=== PATIENT | male | born 1935 | race Caucasian/White ===

== ENCOUNTER 2018-08-11 16:19 | Emergency (ER) | payer MEDICARE, OTHER ==
--- NOTE | 2018-08-11 17:08 | ED Physician Documentation ---
History of Present Illness - Stated complaint Stated Complaint: CHEMO/FEVER/CHILLS - Chief complaint Chief Complaint: Fever - History obtained from History obtained from: Patient - History of Present Illness Timing: Yesterday (Fever since yesterday with tmax 100.8. No cough, URI or urinary complaints. On datrafenib and trametinib for metastatic melanoma.) - Additonal information Additional information: He does not have a port or any indwelling hardware Review of Systems Ten Systems: 10 systems reviewed and negative Constitutional: reports: Fever, Chills Nose: denies: Rhinorrhea / runny nose, Congestion Throat: denies: Sore throat Cardiac: denies: Chest pain / pressure, Palpitations Respiratory: denies: Dyspnea, Cough PD PAST MEDICAL HISTORY - Present Medications Home Medications: Ambulatory Orders Medication Instructions Recorded Confirmed Acyclovir 500 mg pe 08/11/18 Aspirin 81 mg PO 08/11/18 Cod Liver Oil 1 each PO 08/11/18 Dabrafenib Mesylate [Tafinlar] 50 mg PO 08/11/18 Levofloxacin [Levaquin] 750 mg PO DAILY #7 tablet 08/11/18 Levothyroxine [Synthroid] 125 mcg PO QDAC 08/11/18 08/11/18 Trametinib Dimethyl Sulfoxide 2 mg PO 08/11/18 [Mekinist] - Allergies Allergies/Adverse Reactions: Allergies Allergy/AdvReac Type Severity Reaction Status Date / Time No Known Drug Allergies Allergy Verified 08/11/18 16:28 PD ED PE NORMAL - Vitals Vital signs reviewed: Yes - General General: Alert and oriented X 3, No acute distress - HEENT HEENT: PERRL, EOMI, Pharynx benign - Neck Neck: Supple, no meningeal sign, No bony TTP, No bruit - Cardiac Cardiac: RRR, No murmur - Respiratory Respiratory: No respiratory distress, Clear bilaterally - Abdomen Abdomen: Normal bowel sounds, Soft, Non tender - Back Back: No CVA TTP, No spinal TTP - Derm Derm: Normal color, Warm and dry - Neuro Neuro: Alert and oriented X 3, icu tech 2-12 intact - Psych Psych: Normal mood, Normal affect Results - Vitals Vitals: Vital Signs - 24 hr 08/11/18 16:23 Temperature 37.9 C H Heart Rate 97 Respiratory 20 Rate Blood Pressure 177/84 H O2 Saturation 100 - Labs Labs: Laboratory Tests 08/11/18 08/11/18 08/11/18 17:15 17:15 17:15 WBC 5.2 RBC 4.56 L Hgb 14.5 Hct 42.7 MCV 93.5 MCH 31.8 H MCHC 34.0 RDW 13.1 Plt Count 160 MPV 8.1 Neut # (Auto) 3.6 Lymph # (Auto) 1.2 L Hettinger # (Auto) 0.4 Eos # (Auto) 0.0 Baso # (Auto) 0.0 Absolute Nucleated RBC 0.01 Nucleated RBC % 0.2 Sodium 131 L Potassium 4.2 Chloride 98 L Carbon Dioxide 24 Anion Gap 9.0 BUN 20 Creatinine 1.0 Estimated GFR (MDRD) 71 L Glucose 110 H Lactic Acid 1.0 Calcium 9.6 Total Bilirubin 0.9 AST 40 ALT 29 Alkaline Phosphatase 87 Total Protein 7.3 Albumin 4.7 Globulin 2.6 Albumin/Globulin Ratio 1.8 Lipase 53 H Urine Color Urine Clarity Urine pH Ur Specific Jordan Urine Protein Urine Glucose (UA) Urine Ketones Urine Occult Blood Urine Nitrite Urine Bilirubin Urine Urobilinogen Ur Leukocyte Esterase Ur Microscopic Review Urine Culture Comments Influenza A (Rapid) Influenza B (Rapid) 08/11/18 08/11/18 17:45 17:50 WBC RBC Hgb Hct MCV MCH MCHC RDW Plt Count MPV Neut # (Auto) Lymph # (Auto) Hettinger # (Auto) Eos # (Auto) Baso # (Auto) Absolute Nucleated RBC Nucleated RBC % Sodium Potassium Chloride Carbon Dioxide Anion Gap BUN Creatinine Estimated GFR (MDRD) Glucose Lactic Acid Calcium Total Bilirubin AST ALT Alkaline Phosphatase Total Protein Albumin Globulin Albumin/Globulin Ratio Lipase Urine Color YELLOW Urine Clarity CLEAR Urine pH 5.5 Ur Specific Jordan 1.025 Urine Protein NEGATIVE Urine Glucose (UA) NEGATIVE Urine Ketones NEGATIVE Urine Occult Blood NEGATIVE Urine Nitrite NEGATIVE Urine Bilirubin NEGATIVE Urine Urobilinogen 0.2 (NORMAL) Ur Leukocyte Esterase NEGATIVE Ur Microscopic Review NOT INDICATED Urine Culture Comments NOT INDICATED Influenza A (Rapid) Negative Influenza B (Rapid) Negative - Rads (name of study) 2v chest Radiology: EMP read contemporaneously (Early/mild RLL PNA) PD MEDICAL DECISION MAKING - ED course ED course: 83-year-old gentleman on chemotherapy presents with fever. He is found not to be neutropenic and has advised very mild pneumonia on x-ray despite the lack of pulmonary symptoms. Departure - Departure Disposition: 01 Home, Self Care Clinical Impression: Fever Qualifiers: Fever type: due to other condition Qualified Code(s): R50.81 - Fever presenting with conditions classified elsewhere Melanoma Qualifiers: Melanoma location: unspecified site Qualified Code(s): C43.9 - Malignant melanoma of skin, unspecified Pneumonia Qualifiers: Pneumonia type: due to unspecified organism Laterality: right Lung location: lower lobe of lung Qualified Code(s): J18.1 - Lobar pneumonia, unspecified organism Condition: Good Record reviewed to determine appropriate education?: Yes Instructions: Pneumonia Dc Prescriptions: Levofloxacin [Levaquin] 750 mg PO DAILY #7 tablet Comments: Call your doctor to arrange a follow-up appointment, make the next available appointment. In the interim, return anytime if worse or if new symptoms develop. Your blood pressure was elevated today on check into the emergency department. This does not mean that you have hypertension, it is a common phenomenon to come to the emergency department and have elevated blood pressure. I recommend that you see your primary care physician within the week to have it rechecked when you are feeling better.
[2018-08-11 17:26] LABS: BASOPHILS % (AUTO) 0.3 %; HGB - HEMOGLOBIN 14.5 g/dL (14.0-18.0); LYMPHOCYTES # (AUTO) 1.2 10^3/uL (1.5-3.5); LYMPHOCYTES % (AUTO) 23.5 %; MEAN CORPUSCULAR HEMOGLOBIN 31.8 pg (27.0-31.0); MEAN CORPUSCULAR VOLUME 93.5 fL (80.0-94.0); MEAN PLATELET VOLUME 8.1 fL (7.4-11.4); MONOCYTES # (AUTO) 0.4 10^3/uL (0.0-1.0); MONOCYTES % (AUTO) 7.3 %; NEUTROPHILS # (AUTO) 3.6 10^3/uL (1.5-6.6); NEUTROPHILS % (AUTO) 68.9 %; PLT - PLATELET COUNT 160 10^3/uL (130-450); RED BLOOD COUNT 4.56 10^6/uL (4.70-6.10); RED CELL DISTRIBUTION WIDTH 13.1 % (12.0-15.0); WHITE BLOOD COUNT 5.2 x10^3/uL (4.8-10.8)
[2018-08-11 17:37] LABS: ALBUMIN 4.7 g/dL (3.2-5.5); ALBUMIN/GLOBULIN RATIO 1.8 (1.0-2.2); BILIRUBIN,TOTAL 0.9 mg/dL (0.2-1.0); CALCIUM 9.6 mg/dL (8.5-10.3); TOTAL PROTEIN 7.3 g/dL (6.7-8.2)
[2018-08-11 17:56] LABS: BILIRUBIN,URINE NEGATIVE (NEGATIVE); GLUCOSE, URINE (UA) NEGATIVE (NEGATIVE); KETONES,URINE (UA) NEGATIVE (NEGATIVE); LEUKOCYTE ESTERASE, URINE NEGATIVE (NEGATIVE); NITRITE,URINE NEGATIVE (NEGATIVE); OCCULT BLOOD,URINE NEGATIVE (NEGATIVE); PH,URINE 5.5 PH (5.0-7.5); PROTEIN,URINE NEGATIVE (NEGATIVE); UROBILINOGEN,URINE 0.2 (NORMAL) E.U./dL (NORMAL)
[2018-08-11 18:00] LABS: CLARITY,URINE CLEAR (CLEAR)
--- NOTE | 2018-08-11 18:10 | XRAY Report ---
Reason: fever Procedure Date: 08/11/2018 Accession Number: [id number] / [id number] Procedure: XR - Chest 2 View X-Ray CPT Code: 47397 FULL RESULT: EXAM: CHEST RADIOGRAPHY EXAM DATE: 08/11/2018 05:39 PM. CLINICAL HISTORY: Fever. COMPARISON: None. TECHNIQUE: 2 views. FINDINGS: Lungs/Pleura: Ill-defined patchy and linear opacities in the right mid to lower lung. No pleural effusion or pneumothorax. Mediastinum: Heart and mediastinal contours are unremarkable. Other: Mild to moderate degenerative disk changes in the spine with convex right curvature. IMPRESSION: Ill-defined patchy and linear opacities in the right mid to lower lung, concerning for early infection or inflammation. RADIA
[2018-08-11] MEDS ORDERED: levoFLOXacin 250 MG TABLET PO STA (18:11)
[2018-08-11 18:48] VITALS: BP 140/76
== END 2018-08-11 18:50 | disposition home or self-care (01) ==
LOC: ED 16:19
DX: J18.1 Lobar pneumonia, unspecified organism (principal); R50.81 Fever presenting with conditions classified elsewhere; C43.9 Malignant melanoma of skin, unspecified; Z79.82 Long term (current) use of aspirin; R03.0 Elevated blood-pressure reading, without diagnosis of hypertension
CPT/HCPCS: 36415; 71046; 80053; 81003; 83605; 83690; 85025; 87040; 87275; 87276; 99283; A9270; 81001; 87086

== ENCOUNTER 2019-02-06 10:47 | Inpatient (IN) | payer MEDICARE, OTHER ==
--- NOTE | 2019-02-06 11:00 | ED Physician Documentation ---
PD HPI SYNCOPE - Stated complaint Stated Complaint: SYNCOPE/GLF FACIAL INJURY - Chief complaint Chief Complaint: Neuro - History obtained from History obtained from: Patient, EMS - History of Present Illness Witnessed: Unwitnessed Timing - onset: Today Duration: Seconds Preceding symptoms: Light headed (Abrupt lightheadedness just for couple of seconds prior to the fainting. He had had a couple of other episodes in the last 2 days associated with mild physical activity of walking up a little bit of a hill and then yesterday while washing his deck. While washing the deck he did not feel exerted per se and was doing some bending over and felt lightheaded. However the day before was just with walking up a slight incline. Today's episode was while walking the dog any said he picked up the pace to walk a little brisker and then abruptly felt lightheaded and fainted. He denied chest pain with any of those.) Associated symptoms: No: Seizure, Incontinant of urine, Headache, Chest pain, Abdominal pain Contributing factors: Exertion. No: Recent med change, Decreased PO intake, Noxious stimulae Injury occurred: Fell, Head injury (injury to face: nose, nasal bridge and forehead.) Similar symptoms before: Has not had sx before (He has not had problems with abnormal heart rhythm nor heart disease nor fainting episodes prior to the past few days. He does not have any prior history of atrial fibrillation or flutter .) Recently seen: Clinic (He sees an oncologist regarding melanoma that is in remission. He does receive some ongoing chemotherapy.) Review of Systems Constitutional: denies: Fever, Chills, Myalgias, Fatigue, Weight Loss Eyes: denies: Loss of vision Nose: denies: Rhinorrhea / runny nose, Congestion Throat: denies: Sore throat Cardiac: denies: Chest pain / pressure, Palpitations, Pedal edema, Calf pain Respiratory: denies: Dyspnea, Cough, Wheezing GI: denies: Abdominal Pain, Nausea, Vomiting, Diarrhea, Bloody / black stool : denies: Dysuria Musculoskeletal: denies: Neck pain, Back pain Neurologic: denies: Focal weakness, Numbness, Altered mental status, Headache Psychiatric: denies: Depressed Endocrine: denies: Weight loss, Easy bruising / bleeding Immunocompromised: reports: Chemotherapy PD PAST MEDICAL HISTORY - Past Medical History Cardiovascular: Hypertension Endocrine/Autoimmune: HyPOthyroidism Other Past Medical History: Melanoma, in remission, on chemo - Past Surgical History Past Surgical History: Yes Derm: Skin cancer surgery - Present Medications Home Medications: Ambulatory Orders Medication Instructions Recorded Confirmed Acyclovir 500 mg pe 08/11/18 Aspirin 81 mg PO 08/11/18 Cod Liver Oil 1 each PO 08/11/18 Dabrafenib Mesylate [Tafinlar] 50 mg PO 08/11/18 Levofloxacin [Levaquin] 750 mg PO DAILY #7 tablet 08/11/18 Levothyroxine [Synthroid] 125 mcg PO QDAC 08/11/18 08/11/18 Trametinib Dimethyl Sulfoxide 2 mg PO 08/11/18 [Mekinist] - Allergies Allergies/Adverse Reactions: Allergies Allergy/AdvReac Type Severity Reaction Status Date / Time No Known Drug Allergies Allergy Verified 02/06/19 10:58 - Living Situation Living Situation: reports: With spouse/s.o. Living Arrangement: reports: At home - Social History Does the pt smoke?: No Smoking Status: Never smoker Does the pt drink ETOH?: Yes Does the pt have substance abuse?: No - Family History Family history: reports: Non contributory - Immunizations Immunizations are current?: Yes - POLST Patient has POLST: No PD ED PE NORMAL - Vitals Vital signs reviewed: Yes - General General: Alert and oriented X 3, No acute distress, Well developed/nourished - HEENT HEENT: PERRL, EOMI, Other (He has facial abrasions and lacerations. There are abrasions on the left lower forehead and also a laceration on the bridge of the nose. These look likely to have come from his glasses when he hit the ground. There is also a small avulsion of skin from the tip of the nose. The nose wounds have ongoing bleeding very slightly. There is no foreign bodies noted. He has no dental injury. Eye motion is normal without any pain.) - Neck Neck: Supple, no meningeal sign, No bony TTP, No adenopathy - Cardiac Cardiac: No murmur. No: RRR (Slightly irregular but with a good rate from 60- 80. The monitor shows atrial fib flutter with rate control.) - Respiratory Respiratory: Clear bilaterally - Abdomen Abdomen: Soft, Non tender - Back Back: No CVA TTP - Derm Derm: Normal color, Warm and dry - Extremities Extremities: No deformity, No tenderness to palpate, Normal ROM s pain, No edema, No calf tenderness / cord - Neuro Neuro: Alert and oriented X 3, officer captain 2-12 intact, No motor deficit, No sensory deficit, Normal speech Eye Opening: Spontaneous Motor: Obeys Commands Verbal: Oriented GCS Score: 15 Results - Vitals Vitals: Vital Signs - 24 hr 02/06/19 02/06/19 02/06/19 10:57 11:13 12:51 Temperature 36.2 C L 36.6 C Heart Rate 87 63 54 L Respiratory 18 14 12 Rate Blood Pressure 173/67 H 138/71 H O2 Saturation 97 97 99 02/06/19 13:00 Temperature Heart Rate 64 Respiratory 19 Rate Blood Pressure 127/63 O2 Saturation 100 Oxygen O2 Source Room air - Labs Labs: Laboratory Tests 02/06/19 02/06/19 02/06/19 11:06 11:06 11:06 WBC 7.6 RBC 4.50 L Hgb 14.2 Hct 41.5 L MCV 92.2 MCH 31.6 H MCHC 34.3 RDW 14.3 Plt Count 173 MPV 8.6 Neut # (Auto) 6.2 Lymph # (Auto) 0.9 L Rankin # (Auto) 0.3 Eos # (Auto) 0.1 Baso # (Auto) 0.1 Absolute Nucleated RBC 0.00 Nucleated RBC % 0.0 Sodium 134 L Potassium 4.7 Chloride 101 Carbon Dioxide 23 Anion Gap 10.0 BUN 17 Creatinine 0.9 Estimated GFR (MDRD) 80 L Glucose 258 H Calcium 9.6 Magnesium 2.0 Total Bilirubin 0.8 AST 31 ALT 27 Alkaline Phosphatase 84 Troponin I B-Natriuretic Peptide Total Protein 7.0 Albumin 4.1 Globulin 2.9 Albumin/Globulin Ratio 1.4 Lipase 58 H 02/06/19 02/06/19 11:06 11:06 WBC RBC Hgb Hct MCV MCH MCHC RDW Plt Count MPV Neut # (Auto) Lymph # (Auto) Rankin # (Auto) Eos # (Auto) Baso # (Auto) Absolute Nucleated RBC Nucleated RBC % Sodium Potassium Chloride Carbon Dioxide Anion Gap BUN Creatinine Estimated GFR (MDRD) Glucose Calcium Magnesium Total Bilirubin AST ALT Alkaline Phosphatase Troponin I < 0.04 B-Natriuretic Peptide 44 Total Protein Albumin Globulin Albumin/Globulin Ratio Lipase - Rads (name of study) face and head CT Radiology: Prelim report reviewed (No fractures nor intracranial bleeding.), See rad report Procedures - Laceration (location) nose Length in cm: 2 Wound type: Curved, Into subcut fat, Clean Neurovascular status: Sensory intact Anesthesia: LET Skin layer closure: Nylon, Running, Size #-0 - enter number (5), Sutures - enter # (9) Other: Patient tolerated well, No complications, Tetanus UTD Complexity: Simple PD MEDICAL DECISION MAKING - ED course Complexity details: reviewed results, considered differential (The patient has atrial fib flutter on monitor with rate control between 60 and 80. However he does not have any history of atrial fibrillation. Of concern is he has had near syncope and now syncope with some exertion over the last 2 to 3 days. He does not any known history of heart problems. He does not seem dehydrated. Will check labs and evaluate for [place] and heart failure. I do not hear any heart murmurs to suggest aortic stenosis. However further heart evaluation with echocardiogram and potential stress testing would seem likely appropriate. The patient looks well here. I did suture his nose lacerations. I talked with the hospitalist who will have the patient in the hospital for further testing and evaluation.), d/w patient, d/w computing consultant Departure - Departure Disposition: 66 [facility] DC/Xfer Clinical Impression: Atrial flutter with controlled response Syncopal episodes Qualifiers: Syncope type: unspecified Qualified Code(s): R55 - Syncope and collapse Facial laceration Qualifiers: Encounter type: initial encounter Qualified Code(s): S01.81XA - Laceration without foreign body of other part of head, initial encounter Condition: Stable Record reviewed to determine appropriate education?: Yes
[2019-02-06 11:19] LABS: BASOPHILS # (AUTO) 0.1 10^3/uL (0.0-0.1); BASOPHILS % (AUTO) 0.7 %; EOSINOPHILS # (AUTO) 0.1 10^3/uL (0.0-0.7); EOSINOPHILS % (AUTO) 1.2 %; HGB - HEMOGLOBIN 14.2 g/dL (14.0-18.0); LYMPHOCYTES # (AUTO) 0.9 10^3/uL (1.5-3.5); LYMPHOCYTES % (AUTO) 12.1 %; MEAN CORPUSCULAR HEMOGLOBIN 31.6 pg (27.0-31.0); MEAN CORPUSCULAR HGB CONC 34.3 g/dL (32.0-36.0); MEAN CORPUSCULAR VOLUME 92.2 fL (80.0-94.0); MEAN PLATELET VOLUME 8.6 fL (7.4-11.4); MONOCYTES # (AUTO) 0.3 10^3/uL (0.0-1.0); MONOCYTES % (AUTO) 4.4 %; NEUTROPHILS # (AUTO) 6.2 10^3/uL (1.5-6.6); NEUTROPHILS % (AUTO) 81.6 %; PLT - PLATELET COUNT 173 10^3/uL (130-450); RED CELL DISTRIBUTION WIDTH 14.3 % (12.0-15.0); WHITE BLOOD COUNT 7.6 x10^3/uL (4.8-10.8)
[2019-02-06 11:33] LABS: ALBUMIN 4.1 g/dL (3.2-5.5); ALBUMIN/GLOBULIN RATIO 1.4 (1.0-2.2); BILIRUBIN,TOTAL 0.8 mg/dL (0.2-1.0); CALCIUM 9.6 mg/dL (8.5-10.3); CREATININE 0.9 mg/dL (0.6-1.2)
[2019-02-06] MEDS ORDERED: LIDOCAINE-EPINEPH-TETRACAINE 3 ML SYRINGE TOP STA (11:33)
--- NOTE | 2019-02-06 12:01 | CT Report ---
Reason: syncope and fall; face injury Procedure Date: 02/06/2019 Accession Number: [id number] / [id number] Procedure: CT - HEAD WO CPT Code: FULL RESULT: EXAM: CT HEAD AND MAXILLOFACIAL EXAM DATE: 02/06/2019 11:45 AM. CLINICAL HISTORY: Syncope and fall; face injury. COMPARISON: FACIAL BONES W/O 02/06/2019 11:43 AM. TECHNIQUE: Noncontrast axial sections through the head and face, with multiplanar reconstructions through the face. In accordance with CT protocol optimization, one or more of the following dose reduction techniques were utilized for this exam: automated exposure control, adjustment of mA and/or KV based on patient size, or use of iterative reconstructive technique. FINDINGS HEAD CT: Parenchyma: No intraparenchymal hemorrhage. No evidence of mass, midline shift, or CT findings of infarction. Kelley-white differentiation is distinct. Extraaxial Spaces: Normal for age. No subdural or epidural collections identified. Ventricles: Normal in size and position. Bones: No evidence of fracture or calvarial defect. Other: None. FINDINGS MAXILLOFACIAL CT: Bones: No fracture or bone lesion. Temporomandibular Joints: The temporomandibular joints are symmetric and normally located. Sinuses: Mucosal thickening is seen in the nasal cavity and mucoperiosteal thickening is seen in the right greater than left maxillary sinuses with both ostiomeatal units patent. There is deviation of the nasal septum with no acute fracture detected. Other: None. IMPRESSION: Head CT: Negative. Maxillofacial CT: Negative for acute traumatic fracture. RADIA
--- NOTE | 2019-02-06 12:01 | CT Report ---
Reason: syncope and fall; face injury Procedure Date: 02/06/2019 Accession Number: [id number] / [id number] Procedure: CT - MAXILLOFACIAL WO CPT Code: FULL RESULT: EXAM: CT HEAD AND MAXILLOFACIAL EXAM DATE: 02/06/2019 11:45 AM. CLINICAL HISTORY: Syncope and fall; face injury. COMPARISON: FACIAL BONES W/O 02/06/2019 11:43 AM. TECHNIQUE: Noncontrast axial sections through the head and face, with multiplanar reconstructions through the face. In accordance with CT protocol optimization, one or more of the following dose reduction techniques were utilized for this exam: automated exposure control, adjustment of mA and/or KV based on patient size, or use of iterative reconstructive technique. FINDINGS HEAD CT: Parenchyma: No intraparenchymal hemorrhage. No evidence of mass, midline shift, or CT findings of infarction. Kelley-white differentiation is distinct. Extraaxial Spaces: Normal for age. No subdural or epidural collections identified. Ventricles: Normal in size and position. Bones: No evidence of fracture or calvarial defect. Other: None. FINDINGS MAXILLOFACIAL CT: Bones: No fracture or bone lesion. Temporomandibular Joints: The temporomandibular joints are symmetric and normally located. Sinuses: Mucosal thickening is seen in the nasal cavity and mucoperiosteal thickening is seen in the right greater than left maxillary sinuses with both ostiomeatal units patent. There is deviation of the nasal septum with no acute fracture detected. Other: None. IMPRESSION: Head CT: Negative. Maxillofacial CT: Negative for acute traumatic fracture. RADIA
[2019-02-06] MEDS ORDERED: ACETAMINOPHEN 325 MG TABLET PO PRN (13:14)
[2019-02-06] MEDS ORDERED: ONDANSETRON 4 MG/2 ML VIAL IVP PRN (13:14)
[2019-02-06] MEDS ORDERED: oxyCODONE 5 MG TABLET PO PRN (13:14)
[2019-02-06] MEDS ORDERED: SODIUM CHLORIDE FLUSH 0.9% 10 ML SYRINGE IVP PRN (13:14)
--- NOTE | 2019-02-06 19:27 | Ultrasound Report ---
Reason: syncope Procedure Date: 02/06/2019 Accession Number: [id number] / [id number] Procedure: US - Carotid Doppler Complete CPT Code: FULL RESULT: EXAM: BILATERAL CAROTID AND VERTEBRAL ARTERY DUPLEX DOPPLER ULTRASOUND: EXAM DATE: 02/06/2019 06:00 PM CLINICAL HISTORY: Syncope and collapse. COMPARISON: None. TECHNIQUE: Grayscale imaging, color Doppler, and duplex spectral Doppler were used to evaluate the carotid and vertebral arteries bilaterally. Static images were obtained. FINDINGS: Minor atherosclerotic disease is seen in the left carotid bulb. No significant plaque is identified in the right or left common or internal carotid arteries. Normal antegrade flow is present in bilateral vertebral arteries. VELOCITIES (cm/sec): RIGHT: CCA mid: PSV 89 cm/sec CCA dist: PSV 88 cm/sec ICA prox: PSV 59 cm/sec, EDV 9 cm/sec ICA mid: PSV 62 cm/sec, EDV 18 cm/sec ICA dist: PSV 47 cm/sec, EDV 11 cm/sec ECA: PSV 104 cm/sec Vert: PSV 43 cm/sec ICA/CCA: 0.7 LEFT: CCA mid: PSV 103 cm/sec CCA dist: PSV 94 cm/sec ICA prox: PSV 50 cm/sec, EDV 12 cm/sec ICA mid: PSV 51 cm/sec, EDV 13 cm/sec ICA dist: PSV 44 cm/sec, EDV 11 cm/sec ECA: PSV 82 cm/sec Vert: PSV 48 cm/sec ICA/CCA: 0.5 ICA diameter stenosis: Right: <50% by velocity and <70% by NASCET criteria. Left: <50% by velocity and <70% by NASCET criteria. IMPRESSION: 1. Minimal left-sided carotid artery plaquing. 2. In the right carotid artery there are no elevated carotid artery velocities to suggest hemodynamically significant stenosis. 3. In the left carotid artery there are no elevated carotid artery velocities to suggest hemodynamically significant stenosis. 4. Normal antegrade flow is present in bilateral vertebral arteries. General Recommendations: Stenosis =50% ICA - Follow-up ultrasound 6-12 months Stenosis <50% ICA - High Risk Patient with plaque - Follow-up ultrasound 1-2 years Normal Study but High Risk Patient - Follow-up ultrasound 3-5 years Management recommendations and diagnostic criteria are based on current IAC endorsed standards in Carotid Artery Stenosis: Grayscale and Doppler Ultrasound Diagnosis. Validated velocity measurements with angiographic measurements and velocity criteria are extrapolated from diameter data as defined by the Society of Radiologists in Ultrasound Consensus Conference Radiology 2003; 229;340-346. RADIA
[2019-02-06] MEDS ORDERED: TRAMETINIB DIMETHYL SULFOXIDE 0.5 MG PO SCH (20:00)
[2019-02-06] MEDS: DABRAFENIB MESYLATE 75 MG PO SCH (20:19)
[2019-02-06] MEDS: SODIUM CHLORIDE FLUSH 0.9% 10 ML SYRINGE IVP SCH (20:19)
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
[2019-02-06] MEDS: FAMOTIDINE 20 MG TABLET PO SCH (22:01)
[2019-02-07 05:21] LABS: BASOPHILS % (AUTO) 0.3 %; EOSINOPHILS # (AUTO) 0.1 10^3/uL (0.0-0.7); EOSINOPHILS % (AUTO) 1.4 %; HGB - HEMOGLOBIN 14.3 g/dL (14.0-18.0); LYMPHOCYTES # (AUTO) 2.4 10^3/uL (1.5-3.5); LYMPHOCYTES % (AUTO) 31.4 %; MEAN CORPUSCULAR HEMOGLOBIN 32.1 pg (27.0-31.0); MEAN CORPUSCULAR HGB CONC 34.5 g/dL (32.0-36.0); MEAN CORPUSCULAR VOLUME 93.2 fL (80.0-94.0); MEAN PLATELET VOLUME 8.8 fL (7.4-11.4); MONOCYTES # (AUTO) 0.7 10^3/uL (0.0-1.0); MONOCYTES % (AUTO) 8.9 %; NEUTROPHILS # (AUTO) 4.5 10^3/uL (1.5-6.6); PLT - PLATELET COUNT 176 10^3/uL (130-450); RED BLOOD COUNT 4.44 10^6/uL (4.70-6.10); RED CELL DISTRIBUTION WIDTH 14.3 % (12.0-15.0); WHITE BLOOD COUNT 7.7 x10^3/uL (4.8-10.8)
[2019-02-07 05:25] LABS: CALCIUM 9.2 mg/dL (8.5-10.3); CREATININE 0.9 mg/dL (0.6-1.2)
[2019-02-07] MEDS: DABRAFENIB MESYLATE 75 MG PO SCH (06:33)
[2019-02-07] MEDS: SODIUM CHLORIDE FLUSH 0.9% 10 ML SYRINGE IVP SCH ×2 (06:33→08:52)
[2019-02-07] MEDS ORDERED: LEVOTHYROXINE 112 MCG TABLET PO SCH (07:00)
[2019-02-07] MEDS ORDERED: LEVOTHYROXINE 125 MCG TABLET PO SCH ×2 (07:00)
[2019-02-07] MEDS ORDERED: predniSONE 10 MG TABLET PO SCH (08:00)
[2019-02-07] MEDS ORDERED: MULTIVITAMIN W/MINERALS TABLET PO SCH (08:00)
[2019-02-07] MEDS ORDERED: CYANOCOBALAMIN 500 MCG TABLET PO SCH (08:00)
[2019-02-07] MEDS: FAMOTIDINE 20 MG TABLET PO SCH (08:49)
[2019-02-07] MEDS ORDERED: COD LIVER OIL PO SCH (09:00)
[2019-02-07] MEDS ORDERED: ASPIRIN EC 81 MG TABLET PO SCH (09:00)
[2019-02-07] MEDS ORDERED: valACYclovir 500 MG TABLET PO SCH (09:00)
[2019-02-07] MEDS ORDERED: SODIUM CHLORIDE 0.9% 1,000 ML IV SCH (09:00)
[2019-02-07] MEDS ORDERED: POLYETHYLENE GLYCOL 3350 17 GM PACKET PO SCH (09:00)
--- NOTE | 2019-02-07 10:09 | XRAY Report ---
Reason: pre-op for pacemaker Procedure Date: 02/07/2019 Accession Number: [id number] / [id number] Procedure: XR - Chest 1 View X-Ray CPT Code: 88554 FULL RESULT: EXAM: CHEST RADIOGRAPHY EXAM DATE: 02/07/2019 09:29 AM. CLINICAL HISTORY: Pre-op for pacemaker. COMPARISON: CHEST 2 VIEW 08/11/2018 5:21 PM. TECHNIQUE: 1 view. FINDINGS: Lungs/Pleura: No focal opacities evident. No pleural effusion. No pneumothorax. Mediastinum: Within exam limitations, the cardiomediastinal contour is stable with mild calcifications of the aortic arch. Other: None. IMPRESSION: No acute cardiopulmonary abnormality. RADIA
--- NOTE | 2019-02-07 11:21 | Discharge Plan ---
Discharge Plan Disposition: 02 Transfer Acute Care Hosp Condition: Serious No Smoking: If you smoke, Please STOP! Call for help. Follow-up with: Ashley Handy MD [Primary Care Provider] -
[2019-02-07 13:11] VITALS: BP 131/73
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
== END 2019-02-07 13:42 | disposition short-term general hospital (02) | DRG 310 ==
LOC: ED 10:47 → MS2 13:14
PROVIDERS: ADMIT Internal Medicine; ATTEND Internal Medicine
DX: I48.92 Unspecified atrial flutter (principal); I48.91 Unspecified atrial fibrillation; C43.9 Malignant melanoma of skin, unspecified; S00.81XA Abrasion of other part of head, initial encounter; R55 Syncope and collapse; S01.21XA Laceration without foreign body of nose, initial encounter; S01.80XA Unspecified open wound of other part of head, initial encounter; W18.39XA Other fall on same level, initial encounter; I10 Essential (primary) hypertension; Y93.K1 Activity, walking an animal; Y92.410 Unspecified street and highway as the place of occurrence of the external cause; R00.1 Bradycardia, unspecified; G62.0 Drug-induced polyneuropathy; T45.1X5A Adverse effect of antineoplastic and immunosuppressive drugs, initial encounter; E03.9 Hypothyroidism, unspecified; M19.042 Primary osteoarthritis, left hand; M19.041 Primary osteoarthritis, right hand; Z79.899 Other long term (current) drug therapy; Z82.49 Family history of ischemic heart disease and other diseases of the circulatory system; Z87.891 Personal history of nicotine dependence; Z79.52 Long term (current) use of systemic steroids
CPT/HCPCS: 12011; 36415; 70450; 70486; 71045; 80048; 80053; 83690; 83735; 83880; 84443; 84484; 85025; 93005; 93306; 93880; 99284; A9270

== ENCOUNTER 2019-12-18 12:26 | Outpatient (CLI) | payer MEDICARE, OTHER ==
[2019-12-18 12:52] LABS: CALCIUM 9.8 mg/dL (8.5-10.3); CREATININE 0.9 mg/dL (0.6-1.2)
[2019-12-18 12:59] LABS: BASOPHILS % (AUTO) 0.4 %; EOSINOPHILS # (AUTO) 0.1 10^3/uL (0.0-0.7); EOSINOPHILS % (AUTO) 0.9 %; HGB - HEMOGLOBIN 15.2 g/dL (14.0-18.0); LYMPHOCYTES # (AUTO) 1.7 10^3/uL (1.5-3.5); LYMPHOCYTES % (AUTO) 29.9 %; MEAN CORPUSCULAR HEMOGLOBIN 33.2 pg (27.0-31.0); MEAN CORPUSCULAR HGB CONC 34.5 g/dL (32.0-36.0); MEAN CORPUSCULAR VOLUME 96.3 fL (80.0-94.0); MEAN PLATELET VOLUME 10.9 fL (7.4-11.4); MONOCYTES # (AUTO) 0.3 10^3/uL (0.0-1.0); MONOCYTES % (AUTO) 5.8 %; NEUTROPHILS # (AUTO) 3.5 10^3/uL (1.5-6.6); NEUTROPHILS % (AUTO) 62.6 %; PLT - PLATELET COUNT 154 10^3/uL (130-450); RED BLOOD COUNT 4.58 10^6/uL (4.70-6.10); RED CELL DISTRIBUTION WIDTH 12.9 % (12.0-15.0); WHITE BLOOD COUNT 5.5 x10^3/uL (4.8-10.8)
[2019-12-18 13:15] LABS: HB2 TOTAL 15.4 g/dL; HEMOGLOBIN A1C 1.5 g/dL; HEMOGLOBIN A1C % 11.1 % (4.6-6.2)
== END 2019-12-18 12:27 | disposition home or self-care (01) ==
LOC: LAB 12:26
PROVIDERS: ATTEND Internal Medicine Hematology & Oncology
DX: C43.59 Malignant melanoma of other part of trunk (principal); R73.09 Other abnormal glucose
CPT/HCPCS: 36415; 80048; 83036; 85025

== ENCOUNTER 2023-02-03 09:54 | Emergency (ER) | payer MEDICARE, OTHER ==
[2023-02-03 11:21] LABS: BILIRUBIN,URINE NEGATIVE (NEGATIVE); GLUCOSE, URINE (UA) NEGATIVE (NEGATIVE); KETONES,URINE (UA) NEGATIVE (NEGATIVE); LEUKOCYTE ESTERASE, URINE NEGATIVE (NEGATIVE); NITRITE,URINE NEGATIVE (NEGATIVE); OCCULT BLOOD,URINE SMALL (NEGATIVE); PROTEIN,URINE NEGATIVE (NEGATIVE); UROBILINOGEN,URINE 0.2 (NORMAL) E.U./dL (NORMAL)
[2023-02-03 11:22] LABS: CLARITY,URINE CLEAR (CLEAR)
[2023-02-03 11:29] LABS: BASOPHILS % (AUTO) 0.3 %; HCT - HEMATOCRIT 36.1 % (42.0-52.0); HGB - HEMOGLOBIN 12.1 g/dL (14.0-18.0); LYMPHOCYTES # (AUTO) 0.4 10^3/uL (1.5-3.5); LYMPHOCYTES % (AUTO) 11.4 %; MEAN CORPUSCULAR HEMOGLOBIN 30.5 pg (27.0-31.0); MEAN CORPUSCULAR HGB CONC 33.5 g/dL (32.0-36.0); MEAN CORPUSCULAR VOLUME 90.9 fL (80.0-94.0); MEAN PLATELET VOLUME 10.1 fL (7.4-11.4); MONOCYTES # (AUTO) 0.4 10^3/uL (0.0-1.0); NEUTROPHILS # (AUTO) 2.8 10^3/uL (1.5-6.6); NEUTROPHILS % (AUTO) 75.8 %; PLT - PLATELET COUNT 127 10^3/uL (130-450); RED BLOOD COUNT 3.97 10^6/uL (4.70-6.10); RED CELL DISTRIBUTION WIDTH 14.9 % (12.0-15.0); WHITE BLOOD COUNT 3.7 x10^3/uL (4.8-10.8)
[2023-02-03 11:33] LABS: BACTERIA,URINE Rare /HPF (None Seen); SQUAMOUS EPITHELIAL CELL,UR RARE Squamous (<= Few); WBC,URINE 0-3 /HPF (0-3)
[2023-02-03 11:43] LABS: ALBUMIN 4.1 g/dL (3.2-5.5); ALBUMIN/GLOBULIN RATIO 1.5 (1.0-2.2); BILIRUBIN,TOTAL 0.7 mg/dL (0.2-1.0); CALCIUM 9.8 mg/dL (8.5-10.3); CREATININE 1.1 mg/dL (0.6-1.2); POTASSIUM 4.9 mmol/L (3.5-5.0); TOTAL PROTEIN 6.9 g/dL (6.7-8.2)
--- NOTE | 2023-02-03 12:27 | ED Physician Documentation ---
History of Present Illness - Stated complaint Stated Complaint: WEAK,EXHAUSTED - Chief complaint Chief Complaint: General - History obtained from History obtained from: Patient - Additonal information Additional information: 87-year-old gentleman with history of type 2 diabetes, melanoma presents with his . He was very fatigued yesterday for unclear reasons. Then today he started to have shaking chills and generalized weakness. He feels somewhat better now. He denies any pain except for very mild headache with this. He also has a mild cough. PD PAST MEDICAL HISTORY - Past Medical History Cardiovascular: Hypertension Endocrine/Autoimmune: HyPOthyroidism Musculoskeletal: Osteoarthritis Derm: Other - Past Surgical History Past Surgical History: Yes Derm: Skin cancer surgery - Present Medications Home Medications: Ambulatory Orders Medication Instructions Recorded Confirmed Cod Liver Oil 1 each PO DAILY 08/11/18 02/06/19 Cholecalciferol [Vitamin D3] 5,000 unit PO 02/06/19 Cyanocobalamin (Vitamin B-12) 1,000 mcg PO DAILY 02/06/19 02/06/19 [Vitamin B-12] Dabrafenib Mesylate [Tafinlar] 75 mg PO BID 02/06/19 02/06/19 Levothyroxine [Synthroid] 112 mcg PO QDAC 02/06/19 02/06/19 Multivit-Min/FA/Lycopen/Lutein 1 each PO DAILY 02/06/19 02/06/19 [Centrum Silver Men Tablet] Niacin [Slo-Niacin] 500 mg PO DAILY 02/06/19 02/06/19 Trametinib Dimethyl Sulfoxide 1 mg PO QPM 02/06/19 02/06/19 [Mekinist] Valacyclovir HCl [Valtrex] 500 mg PO DAILY 02/06/19 02/06/19 predniSONE [Deltasone] 10 mg PO 0800 02/06/19 02/06/19 - Allergies Allergies/Adverse Reactions: Allergies Allergy/AdvReac Type Severity Reaction Status Date / Time No Known Drug Allergies Allergy Verified 02/03/23 10:33 - Social History Does the pt smoke?: No Smoking Status: Never smoker Does the pt drink ETOH?: Yes Does the pt have substance abuse?: No - Immunizations Immunizations are current?: Yes - POLST Patient has POLST: No PD ED PE NORMAL - Vitals Vital signs reviewed: Yes - General General: Alert and oriented X 3, No acute distress - HEENT HEENT: PERRL, EOMI - Neck Neck: Supple, no meningeal sign - Cardiac Cardiac: RRR, Other (3 out of 6 decrescendo systolic murmur heard best at the right upper sternal border.) - Respiratory Respiratory: No respiratory distress, Clear bilaterally - Abdomen Abdomen: Non tender - Back Back: No CVA TTP, No spinal TTP - Derm Derm: Normal color, Warm and dry - Extremities Extremities: No edema, No calf tenderness / cord - Neuro Neuro: Alert and oriented X 3, Normal speech Results - Vitals Vitals: Vital Signs - 24 hr 02/03/23 10:30 Temperature 37.4 C Heart Rate 72 Respiratory 20 Rate Blood Pressure 135/49 H O2 Saturation 99 Oxygen O2 Source Room air - Labs Labs: Laboratory Tests 02/03/23 02/03/23 02/03/23 10:46 10:55 11:25 WBC 3.7 L RBC 3.97 L Hgb 12.1 L Hct 36.1 L MCV 90.9 MCH 30.5 MCHC 33.5 RDW 14.9 Plt Count 127 L MPV 10.1 Neut # (Auto) 2.8 Lymph # (Auto) 0.4 L [place] # (Auto) 0.4 Eos # (Auto) 0.0 Baso # (Auto) 0.0 Absolute Nucleated RBC 0.00 Nucleated RBC % 0.0 Sodium Potassium Chloride Carbon Dioxide Anion Gap BUN Creatinine Estimated GFR (MDRD) Glucose POC Whole Bld Glucose 162 H Calcium Total Bilirubin AST ALT Alkaline Phosphatase Total Protein Albumin Globulin Albumin/Globulin Ratio Lipase Urine Color YELLOW Urine Clarity CLEAR Urine pH 6.[address] [place] 1.020 Urine Protein NEGATIVE Urine Glucose (UA) NEGATIVE Urine Ketones NEGATIVE Urine Occult Blood SMALL H Urine Nitrite NEGATIVE Urine Bilirubin NEGATIVE Urine Urobilinogen 0.2 (NORMAL) Ur Leukocyte Esterase NEGATIVE Urine RBC 6-10 H Urine WBC 0-3 Ur Squamous Epith Cells RARE Squamous Urine Bacteria Rare Ur Microscopic Review INDICATED Urine Culture Comments NOT INDICATED 02/03/23 11:25 WBC RBC Hgb Hct MCV MCH MCHC RDW Plt Count MPV Neut # (Auto) Lymph # (Auto) [place] # (Auto) Eos # (Auto) Baso # (Auto) Absolute Nucleated RBC Nucleated RBC % Sodium 137 Potassium 4.9 Chloride 102 Carbon Dioxide 26 Anion Gap 9.0 BUN 22 H Creatinine 1.1 Estimated GFR (MDRD) 63 L Glucose 163 H POC Whole Bld Glucose Calcium 9.8 Total Bilirubin 0.7 AST 31 ALT 24 Alkaline Phosphatase 52 Total Protein 6.9 Albumin 4.1 Globulin 2.8 Albumin/Globulin Ratio 1.5 Lipase 69 H Urine Color Urine Clarity Urine pH Ur Specific [address] [place] Urine Protein Urine Glucose (UA) Urine Ketones Urine Occult Blood Urine Nitrite Urine Bilirubin Urine Urobilinogen Ur Leukocyte Esterase Urine RBC Urine WBC Ur Squamous Epith Cells Urine Bacteria Ur Microscopic Review Urine Culture Comments PD Medical Decision Making - ED course ED course: 87-year-old gentleman with fatigue yesterday and shaking chills today. Unremarkable examination. His CBC is notable for a lymphopenia. CMP grossly normal save mild hyperglycemia in the 160s. Urinalysis with trace blood but no signs of infection. Discussed with him that given the lymphopenia and symptoms I suspect a viral process including but not limited to COVID. Offered to test. He would like to go home pending results and I will call him with results in a few hours. They actually have a course of paxlovid at home if needed. Departure - Departure Disposition: 01 Home, Self Care Clinical Impression: Viral syndrome Condition: Good Record reviewed to determine appropriate education?: Yes Instructions: ED Viral Syndrome Comments: Given the shaking chills and the low white count I suspect a viral process causing your symptoms today. We are checking you for a number of viral etiologies including COVID. I will call you in a few hours with results. If you are positive for COVID it would be very reasonable to start the paxlovid you have at home. Return if worse. Drink plenty of fluids and generally rest. The number I have listed that I plan to call you at is [phone]. You do have a 3 out of 6 decrescendo systolic murmur heard best at the right upper sternal border. This is not related to the current issue, but please mention it to your physician for evaluation.
[2023-02-03 13:02] VITALS: BP 125/82
[2023-02-03 14:01] LABS: B. PARAPERTUSSIS- RESP PCR PAN NOT DETECTED; B. PERTUSSIS- RESP PCR PANEL NOT DETECTED; C. PNEUMONIAE- RESP PCR PANEL NOT DETECTED; CORONAVIRUS 229E-RESP PCR NOT DETECTED; CORONAVIRUS HKU1-RESP PCR NOT DETECTED; CORONAVIRUS NL63-RESP PCR NOT DETECTED; CORONAVIRUS OC43-RESP PCR NOT DETECTED; HUMAN METAPNEUMOVIRUS NOT DETECTED; INFLUENZA A- RESP PCR PANEL NOT DETECTED; INFLUENZA B - RESP PCR PANEL NOT DETECTED; M. PNEUMONIAE- RESP PCR PANEL NOT DETECTED; PARAINFLUENZA VIRUS 1 NOT DETECTED; PARAINFLUENZA VIRUS 2 NOT DETECTED; PARAINFLUENZA VIRUS 3 NOT DETECTED; PARAINFLUENZA VIRUS 4 NOT DETECTED; RHINOVIRUS/ENTEROVIRUS NOT DETECTED; RSV- RESP PCR PANEL NOT DETECTED; SARS-CoV-2 -RESP PCR PANEL NOT DETECTED
== END 2023-02-03 13:00 | disposition home or self-care (01) ==
LOC: ED 09:54
DX: B34.9 Viral infection, unspecified (principal); Z20.822 Contact with and (suspected) exposure to COVID-19
CPT/HCPCS: 36415; 80053; 81001; 81003; 83690; 85025; 87086; 87633; 93005; 99283; 99284